=== PATIENT | male | born 1970 | race African-American/Black ===

== ENCOUNTER 2022-01-24 08:51 | Emergency (ER) | payer OTHER, SELFPAY ==
[2022-01-24 09:03] VITALS: BP 142/79; PULSE 79; RESP 16; TEMP 36.1; O2SAT 100
--- NOTE | 2022-01-24 09:23 | ED.SKABFB ---
HPI - Skin/Abscess/Foreign Bdy General Chief complaint: Skin/Abscess/Foreign Body Stated complaint: rash Time Seen by Provider: 01/24/22 09:24 History of Present Illness HPI narrative: Abhilash Harris is a 51 yo male with a PMH of tobacco abuse who is here with a rash for On his arms and back of neck-there for 2 weeks, does not remember if he is washing his tools that he used for outside work Related Data Allergies Allergy/AdvReac Type Severity Reaction Status Date / Time No Known Allergies Allergy Verified 01/24/22 09:38 Review of Systems Review of Systems: CONSTITUTIONAL: Denies fever, chills, sweats. EYES: Denies visual changes, redness, discharge. ENT: Denies rhinorrhea, congestion, sore throat, otalgia. CARDIOVASCULAR: Denies chest pain, palpitations, edema. RESPIRATORY: Denies dyspnea, wheezing, cough GASTROINTESTINAL: Denies abdominal pain, nausea, vomiting, diarrhea. GENITOURINARY: Denies dysuria, hematuria, abnormal discharge SKIN: Rash bilateral arms NEUROLOGIC: Denies numbness, or focal weakness. PSYCHIATRIC: Denies anxiety or depression. [facility] Social History Social History (Updated 01/24/22 @ 09:38 by Nancy Ospina CNP) Smoking packs per day: 0.5 Smoking cigarettes per day: 10.0 Smoking status: Current every day smoker Comments There is at time of signature, I agree with nursing past medical, surgical, social and family history. There is no relevant family history pertinent to the presenting complaint. Exam Narrative: GENERAL: This is a well-nourished, well-developed patient, in mild distress. HEAD: normocephalic, atraumatic. EYES: Sclera clear/white. Vision is grossly intact. EARS: External ears normal, . Hearing grossly intact. NOSE: External nose normal without nasal discharge, nares without redness, no rhinorrhea. THROAT: Mucous membranes moist, NECK: Neck supple, non-tender, few bumps on posterior neck CARDIOVASCULAR: Regular rate and rhythm without murmurs, gallops, or rubs. RESPIRATORY: Clear to auscultation. Breath sounds equal bilaterally. No wheezes, rales, or rhonchi. GASTROINTESTINAL: Not done SKIN: warm, intact with n rash to both arms that has been scratched extensively and has some coalesced areas of scabbing on right arm NEURO: awake, alert, and oriented to person, place and time. There were no obvious focal neurologic abnormalities. Steady gait EXTREMITIES: Normal range of motion. BACK: Nontender without deformity Course Course Emergency Course: Patient comes to [facility] with what appears to be contact dermatitis bilateral arms that has been present for 2 weeks Given prednisone 60 mg here started on Medrol Dosepak, Benadryl, Zyrtec Level of Care: Express Care Visit Vital Signs Vital signs: Vital Signs Temperature 97.0 F L 01/24/22 09:03 Pulse Rate 79 01/24/22 09:03 Respiratory Rate 16 01/24/22 09:03 Blood Pressure 142/79 H 01/24/22 09:03 Pulse Oximetry 100 01/24/22 09:03 Oxygen Delivery Room Air 01/24/22 09:03 Temperature 97.0 F L 01/24/22 09:03 Pulse Rate 79 01/24/22 09:03 Respiratory Rate 16 01/24/22 09:03 Blood Pressure 142/79 H 01/24/22 09:03 Pulse Oximetry 100 01/24/22 09:03 Oxygen Delivery Room Air 01/24/22 09:03 MDM - Skin/Abscess/Foreign Bdy Differential Diagnosis Differential diagnosis: Likely allergic reaction to drug, cellulitis, eczema, impetigo, contact dermatitis and other Discharge Plan Discharge Clinical Impression: Contact dermatitis Patient Disposition: Home, Self-Care Condition: Stable Instructions: Contact Dermatitis (DC) Additional Instructions: Take Medrol Dosepak as directed, take Benadryl twice a day and take Zyrtec twice a day for the next 5 to 7 days Do not scratch your arms use gloves at night if needed and may use calamine or Benadryl clear solution on arms for itching Prescriptions: New methylprednisolone [Medrol (Jerad)] 4 mg tablets,dose pack See Rx Instructi
[2022-01-24] MEDS: predniSONE 20 MG TABLET 60 MG PO (09:49)
== END 2022-01-24 09:54 | disposition home or self-care (01) ==
PROVIDERS: Emergency Provider Nurse Practitioner
DX: L25.9 Unspecified contact dermatitis, unspecified cause (principal); F17.219 Nicotine dependence, cigarettes, with unspecified nicotine-induced disorders
CPT/HCPCS: 99203; G0463; J7512